=== PATIENT | male | born 1990 | race Caucasian/White ===

== ENCOUNTER → 2021-12-28 | Outpatient (CLI) | payer OTHER, SELFPAY ==
--- NOTE | 2021-12-28 10:40 | RAD_ITS ---
CLINICAL HISTORY: Male, 31 years old. Right shoulder pain. History of labral tear. PROCEDURE: ARTHROGRAM - RIGHT SHOULDER CONSENT: The procedure as well as the benefits and possible complication including infection and bleeding were explained to the patient. Informed consent was obtained. FLUOROSCOPY TIME (if supplied): (32 seconds) minutes/seconds Injection Information: 10 cc of dilute MRI contrast. Number of images obtained: 4 TECHNIQUE: (All elements of maximal sterile barrier technique followed, including US elements as applicable) The patient was in the supine position. The overlying skin was prepped and draped in the usual sterile fashion. Following local anesthetic application and direct fluoroscopic guidance, a 22-gauge spinal needle was placed into the shoulder joint. 2 cc of ISOVUE-300 was injected for confirmation. Following this, 10 cc of dilute MRI contrast was injected. The patient tolerated the procedure well. RAD/Arthrogram Shoulder w/ MRI IMPRESSION: Successful right shoulder arthrogram for MRI examination. The patient tolerated the procedure well. Electronically Signed: Isaiah Pack MD at 11:59 EDT ,
[2021-12-28] MEDS: Lidocaine 2% (5ml sdv) 5 ML VIAL.MPF INFILT (10:54)
[2021-12-28] MEDS: Iopamidol 10 ML in Syringe 1 EACH 600 ML INTRAARTIC (10:55)
--- NOTE | 2021-12-28 11:10 | MRI_ITS ---
STUDY: MR RIGHT SHOULDER ARTHROGRAPHY REASON FOR EXAM: Right shoulder pain, prior labral repair. TECHNIQUE: Standardized fat and water weighted pulse sequences were obtained in all 3 orthogonal planes after intra-articular instillation of dilute Dotarem. COMPARISON: Arthrographic images preceding the MRI. FINDINGS: Normal supraspinatus tendon. Normal infraspinatus tendon. Normal subscapularis tendon. Normal teres minor tendon. Normal supraspinatus muscle. Normal infraspinatus muscle. Normal subscapularis muscle. Normal teres minor muscle. Normal glenohumeral articulation. Normal humeral head and visualized proximal humerus. Normal biceps labral complex. Normal intracapsular long biceps tendon. There are postsurgical changes from labral repair, and tear of the posterior labrum (T1 coronal images 12, 13). Normal capsulo- ligamentous complex. Normal rotator interval. There is no substantial acromioclavicular arthrosis. There is a Type I morphology (flat undersurface), with a neutral orientation. There is no subacromial-subdeltoid bursal fluid. Normal visualized coracohumeral and coracoacromial ligaments. There is mild iatrogenic edema in the proximal anterior deltoid muscle. Normal trapezius muscle. MRI/Upper Ext Jt Only W/Contrast IMPRESSION: Posterior labral tear. Electronically Signed: Chava Romero MD at 13:23 EDT ,
== END | disposition home or self-care (01) ==
DX: S43.431A Superior glenoid labrum lesion of right shoulder, initial encounter (principal)
CPT/HCPCS: 23350; 73222; 77002; A9575; Q9967

== ENCOUNTER 2023-03-27 18:36 | Emergency (ER) | payer BC, SELFPAY ==
[2023-03-27 18:38] VITALS: BP 153/79; PULSE 78; RESP 18; TEMP 36.2; O2SAT 97; BMI 40.0
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
--- NOTE | 2023-03-27 19:10 | RAD_ITS ---
EXAM: XR LEFT HUMERUS, 2 OR MORE VIEWS CLINICAL INDICATION: arm pain TECHNIQUE: Frontal and lateral views of the left humerus. COMPARISON: No relevant prior studies available. FINDINGS: BONES/JOINTS: Unremarkable. No acute fracture. No subluxation. Normal alignment. Preservation of the joint space. No sclerotic or destructive changes observed. SOFT TISSUES: Unremarkable. No soft tissue swelling or gas. No radiopaque foreign body. RAD/Humerus min 2 Views IMPRESSION: Negative left humerus x-rays. Electronically Signed: Mitch Pyle MD at 19:29 EST ,
--- NOTE | 2023-03-27 19:10 | RAD_ITS ---
EXAM: XR LEFT ELBOW COMPLETE, 3 OR MORE VIEWS CLINICAL INDICATION: elbow injury TECHNIQUE: Frontal, lateral and oblique views of the left elbow. COMPARISON: No relevant prior studies available. FINDINGS: BONES/JOINTS: Unremarkable. There is no displacement of the anterior or posterior fat pads. No acute fracture. No subluxation. Normal alignment. Preservation of the joint space. No destructive or sclerotic lesions. SOFT TISSUES: Unremarkable. No soft tissue swelling or gas. No radiopaque foreign body. RAD/Elbow min 3 Views IMPRESSION: Negative left elbow. Electronically Signed: Mitch Pyle MD at 19:28 EST ,
--- NOTE | 2023-03-27 19:10 | RAD_ITS ---
STUDY: XR Ankle Min 3 Views REASON FOR EXAM: Male, 32 years old. ANKLE PAIN TECHNIQUE: XR Ankle Min 3 Views RIGHT COMPARISON: None. FINDINGS: Normal visualized distal tibia and fibula. Normal medial and lateral malleoli. Normal tibiotalar articulation and ankle mortise. The visualized subtalar, talonavicular, calcaneocuboid and tarsal articulations are normal. There is a plantar calcaneal spur. There is soft tissue swelling around the ankle. RAD/Ankle min 3 Views IMPRESSION: There is soft tissue swelling. Electronically Signed: Mitch Pyle MD at 19:36 EST ,
[2023-03-27] MEDS: Oxycodone/Apap 5/325 Tablet PO (20:14)
--- NOTE | 2023-03-27 20:34 | ED.RN ---
sent 0.36 copay to pharmacy for meds
== END 2023-03-27 20:46 | disposition home or self-care (01) ==
PROVIDERS: Emergency Provider Emergency Medicine; Visit Provider Emergency Medicine
DX: S46.302A Unspecified injury of muscle, fascia and tendon of triceps, left arm, initial encounter (principal); S93.401A Sprain of unspecified ligament of right ankle, initial encounter; F41.9 Anxiety disorder, unspecified; F32.A Depression, unspecified; V86.65XA Passenger of 3- or 4- wheeled all-terrain vehicle (ATV) injured in nontraffic accident, initial encounter
CPT/HCPCS: 73060; 73080; 73610; 99283